=== PATIENT | female | born 1995 | race Caucasian/White ===

== ENCOUNTER 2025-02-09 22:57 | Emergency (ER) | payer BC, OTHER | END 2025-02-10 02:14 | disposition home or self-care (01) | LOC: JD.ED 22:57 | DX: S92.354A Nondisplaced fracture of fifth metatarsal bone, right foot, initial encounter for closed fracture (principal); Z79.899 Other long term (current) drug therapy; X50.9XXA Other and unspecified overexertion or strenuous movements or postures, initial encounter | CPT/HCPCS: 73610; 73630; 96372; 99283; J2270 ==